=== PATIENT | male | born 1940 | race Caucasian/White ===

== ENCOUNTER → 2016-05-16 | Outpatient (CLI) | payer OTHER, BC, MEDICARE ==
[2016-05-16 17:05] LABS: CHLORIDE,CL 105 mmol/L (98-110); SODIUM,NA 140 mmol/L (136-146)
--- NOTE | 2016-05-17 10:39 | CR ---
EXAM DATE: 05/16/16 PATIENT'S AGE: 75 Patient: BERENICE LOCK Facility: [place], [place] Site . Site : 1940 Study: XRay Spine Cervical [id number]/1/2017 5:23:45 PM Ordering Physician: Malgorzata Smart Final Report: INDICATION: Neck pain. Technique: Three-view study cervical spine. Findings: C1-C2 articulation is unremarkable. No evidence of fracture or dislocation. Disc space narrowing and disc degeneration at C5-6 and C6-7 with anterior and posterior osteophytes. Impression: 1. Disk degeneration and disc space narrowing at C5-6 and C6-7. 2. No fracture or dislocation. Dictated by Alvaro Marques MD @ May 16 2016 5:36PM (Electronic Signature) Report Signed by Proxy and Original Signed Document filed in the Medical Record. SOURAV
--- NOTE | 2016-05-17 10:40 | CR ---
EXAM DATE: 05/16/16 PATIENT'S AGE: 75 Patient: BERENICE LOCK Facility: [place], [place] Site . Site : 1940 Study: XRay Spine Lumbar [id number]/1/2017 5:26:29 PM Ordering Physician: Malgorzata Smart Final Report: INDICATION: Pain TECHNIQUE: Lumbar spine 3 view. COMPARISON: None available FINDINGS: There is mild anterolisthesis of L4 on L5. The vertebral body heights are preserved. There is mild narrowing of the L5-S1 disc space. Small anterior osteophytes are seen at multiple levels. The facets are anatomically aligned. IMPRESSION: Mild degenerative changes. Dictated by Jhon Park MD @ 05/16/2016 5:36:06 PM Dictated by: Jhon Park MD @ 05/16/2016 17:36:15 (Electronic Signature) Report Signed by Proxy and Original Signed Document filed in the Medical Record. [email or web address]
== END ==
LOC: MW.CHIM 16:20
PROVIDERS: ATTEND Internal Medicine
DX: I25.10 Atherosclerotic heart disease of native coronary artery without angina pectoris (principal); M54.2 Cervicalgia; M54.5 Low back pain; M25.78 Osteophyte, vertebrae
CPT/HCPCS: 36415; 72040; 72040-26; 72100; 72100-26; 80053; 80061; 85025

== ENCOUNTER → 2016-07-17 | Outpatient (CLI) | payer BC, MEDICARE ==
--- NOTE | 2016-07-17 13:26 | CR ---
EXAMINATION: Left hip HISTORY: Sacroiliitis COMPARISON: None TECHNIQUE: 2 views FINDINGS/IMPRESSION: There is no acute osseous abnormality, dislocation, or fracture identified. Bon e mineralization and joint spaces appear grossly preserved.
== END ==
LOC: MW.CHIM 09:58
PROVIDERS: ATTEND Internal Medicine
DX: M46.1 Sacroiliitis, not elsewhere classified (principal)
CPT/HCPCS: 73502-26-LT; 73502-LT

== ENCOUNTER 2017-01-05 01:02 | Emergency (ER) | payer BC, MEDICARE ==
--- NOTE | 2017-01-05 01:25 | EDM.PDOC ---
ED HPI GENERAL MEDICAL PROBLEM - General Chief Complaint: Neck Problem Stated Complaint: NECK PAIN Time Seen by Provider: 01/05/17 01:24 Source of Information: Reports: Patient - History of Present Illness INITIAL COMMENTS - FREE TEXT/NARRATIVE: HISTORY AND PHYSICAL: History of present illness: [Patient presents with neck pain previously 10 out of 10 pain, he has clear muscle spasm associated, he has been drinking tonight his sister is brought him to the emergency room as he was crying in pain prior to arrival, he has drank 6- 7 beers along with a whiskey drink, he also has taken a muscle relaxant. Pain currently is tolerable and 4 out of 10 he denies any stingers, paresthesia arm numbness tingling. Currently in no distress no fever nausea vomiting chills sweats no chest pain shortness breath headache dizziness palpitation no bowel or urine symptoms He has been getting his care through chiropractor multiple adjustments and massage therapy, there is previous cervical spine from last May, he states that earlier this year he awoke with sleep from the pain he has had pain since without improvement ] Review of systems: As per history of present illness and below otherwise all systems reviewed and negative. Past medical history: As per history of present illness and as reviewed below otherwise noncontributory. Surgical history: As per history of present illness and as reviewed below otherwise noncontributory. Social history: No reported history of drug or alcohol abuse. Family history: As per history of present illness and as reviewed below otherwise noncontributory. Physical exam: HEENT: Atraumatic, normocephalic, pupils reactive, negative for conjunctival pallor or scleral icterus, mucous membranes moist, throat clear, neck supple, nontender, trachea midline. Lungs: Clear to auscultation, breath sounds equal bilaterally, chest nontender. Heart: S1S2, regular, negative for clicks, rubs, or JVD. Abdomen: Soft, nondistended, nontender. Negative for masses or hepatosplenomegaly. Negative for costovertebral tenderness. Pelvis: Stable nontender. Genitourinary: Deferred. Rectal: Deferred. Extremities: Atraumatic, negative for cords or calf pain. Neurovascular unremarkable. Neuro: Awake, alert, oriented. Cranial nerves II through XII unremarkable. Cerebellum unremarkable. Motor and sensory unremarkable throughout. Exam nonfocal. Diagnostics: [Cervical spine without contrast ] Therapeutics: [Patient took muscle relaxant at home Fioricet 1-2 tabs by mouth every 6 when necessary #20 no refill No drinking or driving or hazardous activity while on this medication Follow-up with primary care in 2 weeks sooner as needed ] Impression: Paraspinous muscle spasm Degenerative disc disease C5-7 ] Definitive disposition and diagnosis as appropriate pending reevaluation and review of above. Posterior Neck Pain Score (Numeric/FACES): 10 - Related Data Allergies Allergy/AdvReac Type Severity Reaction Status Date / Time No Known Allergies Allergy Verified 01/05/17 01:23 Home Meds: Home Meds . [No Known Home Meds] 01/05/17 [History] ED ROS GENERAL - Review of Systems Review Of Systems: ROS reveals no pertinent complaints other than HPI. ED EXAM, GENERAL - Physical Exam Exam: See Below Course - Vital Signs Last Recorded V/S: Last Vital Signs Temp 35.9 C 01/05/17 01:15 Pulse 63 01/05/17 01:15 Resp 20 01/05/17 01:15 BP 123/73 01/05/17 01:15 Pulse Ox 97 01/05/17 01:15 - Orders/Labs/Meds Orders: Active Orders 24 hr Category Date Time Status Cervical Spine wo Cont [CT] Stat Exams 01/05/17 01:24 Taken Departure - Departure Time of Disposition: 02:47 Disposition: Home, Self-Care 01 Condition: Good Clinical Impression: Degenerative disc disease, Muscle spasm - Discharge Information Referrals: PCP,None [Primary Care Provider] - Forms: ED Department Discharge Additional Instructions: medication as prescribed Return if symptoms persist or worsen Follow-up with primary care in 2 weeks sooner as needed No drinking driving or hazardous activity with medication The following information is given to patients seen in the emergency department who are being discharged to home. This information is to outline your options for follow-up care. We provide all patients seen in our emergency department with a follow-up referral. The need for follow-up, as well as the timing and circumstances, are variable depending upon the specifics of your emergency department visit. If you don't have a primary care physician on staff, we will provide you with a referral. We always advise you to contact your personal physician following an emergency department visit to inform them of the circumstance of the visit and for follow-up with them and/or the need for any referrals to a consulting specialist. The emergency department will also refer you to a specialist when appropriate. This referral assures that you have the opportunity for follow-up care with a specialist. All of these measure are taken in an effort to provide you with optimal care, which includes your follow-up. Under all circumstances we always encourage you to contact your private physician who remains a resource for coordinating your care. When calling for follow-up care, please make the office aware that this follow-up is from your recent emergency room visit. If for any reason you are refused follow-up, please contact the [facility] emergency department at and asked to speak to the emergency department charge nurse. - My Orders Last 24 Hours: My Active Orders 01/05/17 01:24 Cervical Spine wo Cont [CT] Stat - Assessment/Plan Last 24 Hours: My Active Orders 01/05/17 01:24 Cervical Spine wo Cont [CT] Stat
--- NOTE | 2017-01-06 19:03 | CT ---
EXAM DATE: 01/05/17 PATIENT'S AGE: 76 Patient: BERENICE LOCK Facility: [place], [place] Site . Site : 1940 Study: CT Spine Cervical [id number]/21/2017 2:01:41 AM Ordering Physician: Doctor Wick Final Report: INDICATION: Pain TECHNIQUE: CT cervical spine without contrast. COMPARISON: None FINDINGS: Vertebral alignment: Alignment is normal. Vertebrae: There are no fractures or suspicious bony lesions. Discs and facet joints: Disc space narrowing and degenerative changes C5 through C7. Extraspinal findings: Prevertebral soft tissues are normal. Bilateral apical pleural thickening. With adjacent parenchymal opacities. IMPRESSION: Disc space narrowing and degenerative changes C5-C7. Bilateral apical pleural thickening with adjacent nodular upper lobe airspace opacities. Dictated by Basilio Pizano MD @ 01/05/2017 2:41:12 AM Dictated by: Basilio Pizano MD @ 01/05/2017 02:41:39 (Electronic Signature) Report Signed by Proxy. [facility]OSPITALEdward
== END 2017-01-05 03:25 | disposition home or self-care (01) ==
LOC: MW.ED 01:02
DX: M50.323 Other cervical disc degeneration at C6-C7 level (principal); M62.838 Other muscle spasm
CPT/HCPCS: 72125; 72125-26; 99282; 99283-25

== ENCOUNTER 2017-08-15 14:19 | Emergency (ER) | payer MEDICARE, BC ==
--- NOTE | 2017-08-15 14:49 | EDM.PDOC ---
ED HPI GENERAL MEDICAL PROBLEM - General Chief Complaint: General Stated Complaint: SWELLING TO RIGHT LEG AND ABDOMEN Time Seen by Provider: 08/15/17 14:33 - History of Present Illness INITIAL COMMENTS - FREE TEXT/NARRATIVE: HISTORY AND PHYSICAL: History of present illness: The patient is a 77-year-old male who has no stated medical history and no provider and presents with a one-week history of a discomfort/pinching pain in his right groin area that comes and goes. He says he feels like it radiates around to his hip into his inguinal area but does not go down his leg. He has no testicular pain or swelling no urinary complaints no flank pain and no issues with bowel movements. He has no midline back pain or abdominal pain. He is eating and drinking normally. For work he does do a lot of activities lifting and moving different objects and he notices that when he is doing activities he feels the discomfort more. He says that today he noticed a lump area down there that comes and goes. He has no weakness or neurosensory changes in his legs Review of systems: As per history of present illness and below otherwise all systems reviewed and negative. Past medical history: As per history of present illness and as reviewed below otherwise noncontributory. Surgical history: As per history of present illness and as reviewed below otherwise noncontributory. Social history: No reported history of drug or alcohol abuse. Family history: As per history of present illness and as reviewed below otherwise noncontributory. Physical exam: General: Well-developed well-nourished man who is nontoxic and moves easily in the ED. HEENT: Atraumatic, normocephalic, negative for conjunctival pallor or scleral icterus, mucous membranes moist, throat clear, neck supple, nontender, trachea midline. Lungs: Clear to auscultation, breath sounds equal bilaterally, chest nontender. Heart: S1S2, regular in rhythm no overt murmurs Abdomen: Soft, nondistended, nontender. Negative for masses or hepatosplenomegaly. Negative for costovertebral tenderness. Normoactive bowel sounds Pelvis: Stable nontender. There is no lateral hip tenderness Genitourinary: The testicles are descended and there is no inguinal adenopathy redness. At the right groin area a direct inguinal hernia is appreciated and easily reducible and in fact slips in and out when I have the patient Valsalva and then relax. It is soft and mildly tender but reduces easily. Rectal: Deferred. Extremities: Atraumatic negative for cords or calf pain. Neurovascular unremarkable. Full range of motion of all extremities and there is no discrete tenderness at the right hip with internal or external rotation or flexion and extension. There is no leg asymmetry no pedal edema no calf swelling appreciated. Neuro: Awake, alert, oriented. Cranial nerves II through XII unremarkable. Cerebellum unremarkable. Motor and sensory unremarkable throughout. Exam nonfocal. Back: There are no midline step-offs tenderness or defects of the thoracic or lumbar spine no posterior pelvis tenderness Diagnostics: [] Therapeutics: [] Impression: Right inguinal hernia, direct, reducible stable Definitive disposition and diagnosis as appropriate pending reevaluation and review of above. - Related Data Allergies Allergy/AdvReac Type Severity Reaction Status Date / Time No Known Allergies Allergy Verified 08/15/17 14:33 Home Meds: Home Meds . [No Known Home Meds] 01/05/17 [History] Past Medical History HEENT History: Reports: Impaired Vision Other Cardiovascular History: heart attack - Infectious Disease History Infectious Disease History: Reports: Measles, Mumps, Rubella - Past Surgical History HEENT Surgical History: Reports: None Cardiovascular Surgical History: Reports: Coronary Artery Stent GI Surgical History: Reports: Appendectomy Social & Family History - Family History Family Medical History: Noncontributory - Tobacco Use Smoking Status *Q: Former Smoker Used Tobacco, but Quit: Yes Month/Year Tobacco Last Used: 03/1962 - Caffeine Use Caffeine Use: Reports: Coffee - Recreational Drug Use Recreational Drug Use: No ED ROS GENERAL - Review of Systems Review Of Systems: ROS reveals no pertinent complaints other than HPI. ED EXAM, GENERAL - Physical Exam Exam: See Below (See dictation) Course - Vital Signs Last Recorded V/S: Last Vital Signs Temp 36.9 C 08/15/17 14:30 Pulse 68 08/15/17 14:30 Resp 16 08/15/17 14:30 BP 150/92 H 08/15/17 14:30 Pulse Ox 97 08/15/17 14:30 Departure - Departure Time of Disposition: 14:47 Disposition: Home, Self-Care 01 Condition: Good Clinical Impression: Right inguinal hernia - Discharge Information Referrals: PCP,None [Primary Care Provider] - Additional Instructions: The following information is given to patients seen in the emergency department who are being discharged to home. This information is to outline your options for follow-up care. We provide all patients seen in our emergency department with a follow-up referral. The need for follow-up, as well as the timing and circumstances, are variable depending upon the specifics of your emergency department visit. If you don't have a primary care physician on staff, we will provide you with a referral. We always advise you to contact your personal physician following an emergency department visit to inform them of the circumstance of the visit and for follow-up with them and/or the need for any referrals to a consulting specialist. The emergency department will also refer you to a specialist when appropriate. This referral assures that you have the opportunity for followup care with a specialist. All of these measure are taken in an effort to provide you with optimal care, which includes your followup. Under all circumstances we always encourage you to contact your private physician who remains a resource for coordinating your care. When calling for followup care, please make the office aware that this follow-up is from your recent emergency room visit. If for any reason you are refused follow-up, please contact the [facility] emergency department at and ask to speak to the emergency department charge nurse. [facility]-General Surgery Professional Building [address] [place] [id number] [facility] Primary care- Internal Medicine and Family [facility] [address] [place] [id number] If the lump appears again with activities try to lay down and relax and massage the area until it reduces as we did in the ED. Try to reduce strenuous activity and lifting and do not force bowel movements. Please contact our providers in the clinic to discuss surgical repair of this if you choose. Return to ER as needed and as discussed.
== END 2017-08-15 15:24 | disposition home or self-care (01) ==
LOC: MW.ED 14:19
DX: K40.90 Unilateral inguinal hernia, without obstruction or gangrene, not specified as recurrent (principal); Z87.891 Personal history of nicotine dependence
CPT/HCPCS: 99282

== ENCOUNTER 2017-09-13 06:40 | Day surgery (SDC) | payer BC ==
[~2017-09-13 06:40] MED LIST: Lactated Ringers 1,000 ML IV SCH
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
[2017-09-13] MEDS ORDERED: fentaNYL 100 MCG/2 ML SDV ONE (07:21)
[2017-09-13] MEDS ORDERED: fentaNYL 250 MCG/5 ML SDV ONE (07:21)
[2017-09-13] MEDS ORDERED: Lidocaine 2% 5 ML SDV ONE (07:21)
[2017-09-13] MEDS ORDERED: Midazolam 1 MG/ML 2 ML SDV ONE (07:21)
[2017-09-13] MEDS ORDERED: Propofol 200 MG/20 ML SDV ONE (07:21)
[2017-09-13] MEDS ORDERED: ceFAZolin/Dextrose,Iso-Osmotic 2 GM/50 ML Duplex Bag IV ONE (07:30)
[2017-09-13] MEDS ORDERED: ceFAZolin 1 GM Vial ONE (07:39)
[2017-09-13] MEDS ORDERED: Bupivacaine 0.5% 10 ML SDV ONE (07:39)
[2017-09-13] MEDS ORDERED: ePHEDrine 50 MG/ML SDV ONE (08:05)
[2017-09-13] MEDS ORDERED: fentaNYL 100 MCG/2 ML SDV IVPUSH PRN (08:22)
[2017-09-13] MEDS ORDERED: Neostigmine Methylsulfate 1 MG/ML 5 ML Syringe ONE (08:43)
[2017-09-13] MEDS ORDERED: Glycopyrrolate 0.2 MG/ML SDV ONE (08:43)
[2017-09-13] MEDS ORDERED: Morphine 10 MG/ML Syringe IVPUSH PRN (09:07)
[2017-09-13] MEDS ORDERED: Ondansetron 4 MG/2 ML SDV IVPUSH PRN (09:07)
[2017-09-13] MEDS ORDERED: Acetaminophen/HYDROcodone 325-5 MG Tab PO PRN (09:07)
--- NOTE | 2017-09-13 09:13 | PCM.OPNOTE ---
- General Post-Op/Procedure Note Date of Surgery/Procedure: 09/13/17 Operative Procedure(s): Repair indirect right inguinal hernia with large Bard PerFix plug and patch Pre Op Diagnosis: Reducible right inguinal hernia Post-Op Diagnosis: Reducible indirect right inguinal hernia Anesthesia Technique: General ET Tube (ASA II) Primary Surgeon: Alessandro Siddiqui Fluid Replacement, Intraop: 1,000 EBL in mLs: 10 Condition: Good Free Text/Narrative:: DICTATION [id number] CPT CODE 17888
[2017-09-13] MEDS ORDERED: Lactated Ringers 1,000 ML IV SCH (09:15)
--- NOTE | 2017-09-16 07:38 | OR ---
SURGEON: Alessandro Siddiqui M.D. DATE OF PROCEDURE: 09/13/2017 OPERATION PERFORMED: Repair of right inguinal hernia with large Bard PerFix plug and patch. ANESTHESIA: General endotracheal. ASA CLASSIFICATION: II. PREOPERATIVE DIAGNOSIS: Reducible right inguinal hernia. POSTOPERATIVE DIAGNOSIS: Reducible indirect right inguinal hernia. ESTIMATED BLOOD LOSS: 10 mL. INTRAOPERATIVE FLUID REPLACEMENT: 1000 mL of crystalloid. DESCRIPTION OF PROCEDURE: The patient was taken to the operating room and placed on the operating table in the supine position. Time-out was called for appropriate identification of the patient and procedure. Thigh-high TEDs and sequential compression boots were placed. Following satisfactory attainment of general endotracheal anesthesia, the abdomen was prepped with DuraPrep solution. Sterile drapes were applied. The skin incision was marked out in the right inguinal crease and infiltrated with 10 mL of 0.5% Marcaine solution. The skin incision was made and dissection carried through the deep down through the subcutaneous tissues obtaining hemostasis with the use of electrocautery. The external oblique was opened in the direction of its fibers and retracted. The spermatic cord was identified and mobilized and encircled with a [place] drain. There was an indirect sac that was dissected away from the cord and was able to be reduced without entering the sac. The defect was palpated and a large Bard PerFix plug and patch was brought to the operating table. This was soaked in 1% Ancef solution. The plug was placed into the internal ring and secured with an 0 Ethibond suture. The patch was placed over the inguinal floor with the wings brought around the cord laterally. The patch was then secured medially and inferiorly to Israel's ligament transitioning to the inguinal ligament and superiorly to the transversalis fascia with multiple interrupted 0 Ethibond sutures. All sutures were placed under direct vision and held with hemostats until the final sutures had been placed. The wings were brought around the cord and again secured laterally with an 0 Ethibond suture. Care was taken to also incorporate both plug and patch with at least one suture. Once this was accomplished, all sutures except the lateral stitch were secured. The patient was given Valsalva maneuver to 50+ cm of water and the repair felt to be solid. The lateral stitch was then secured with care taken not to impinge the cord. The wound was inspected for hemostasis and small bleeding sites were electrocoagulated. The wound was irrigated with 1% Ancef solution. The cord was returned to its anatomic location. The external oblique fascia was closed with running 3-0 Polysorb. Wilson's fascia was reapproximated with running 3-0 Polysorb and the skin edges were reapproximated with subcuticular 4-0 Monocryl. The incision was then Steri-Stripped and dressed with a sterile Tegaderm pad. Sponge, needle, and instrument counts were all correct. The patient tolerated the procedure well. Following emergence from anesthesia and extubation, the patient was taken to recovery room in stable condition. DORINA MONROE /[id number]
== END 2017-09-13 11:45 | disposition home or self-care (01) ==
LOC: MW.SDS 06:40
PROVIDERS: ATTEND Surgery
DX: K40.90 Unilateral inguinal hernia, without obstruction or gangrene, not specified as recurrent (principal); M46.1 Sacroiliitis, not elsewhere classified; I25.10 Atherosclerotic heart disease of native coronary artery without angina pectoris; I25.2 Old myocardial infarction; F32.9 Major depressive disorder, single episode, unspecified; Z79.82 Long term (current) use of aspirin; Z87.891 Personal history of nicotine dependence
CPT/HCPCS: 49505; A9270; J0690; J2250; J3010; J7120; C1781; J2704

== ENCOUNTER 2018-08-25 02:10 | Emergency (ER) | payer MEDICARE, BC ==
[2018-08-25] MEDS ORDERED: Bacitracin Oint 1 GM U/D Packet TOP ONE (02:27)
[2018-08-25] MEDS ORDERED: Amoxicillin/Clavulanate K 875-125 MG Tab PO ONE (02:28)
[2018-08-25] MEDS ORDERED: Diphtheria/Tetanus Toxoids,Adult (Td) 0.5 ML Syringe IM ONE (02:29)
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
[2018-08-25] MEDS ORDERED: Sodium Chloride 0.9% 2.5 ML Syringe FLUSH PRN (04:13)
[2018-08-25] MEDS ORDERED: Sodium Chloride 0.9% 10 ML Syringe FLUSH PRN (04:13)
[2018-08-25] MEDS ORDERED: Sodium Chloride 0.9% 1,000 ML IV SCH (04:15)
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
[2018-08-25] MEDS ORDERED: Ondansetron 4 MG/2 ML SDV ONE (04:21)
[2018-08-25] MEDS ORDERED: Ondansetron 4 MG/2 ML SDV IVPUSH ONE (04:22)
[2018-08-25 05:01] LABS: CHLORIDE,CL 101 mmol/L (98-107); SODIUM,NA 139 mmol/L (136-148)
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
== END 2018-08-25 05:05 ==
LOC: MW.ED 02:10
DX: S02.40DA Maxillary fracture, left side, initial encounter for closed fracture (principal); S02.82XA Fracture of other specified skull and facial bones, left side, initial encounter for closed fracture; S61.251A Open bite of left index finger without damage to nail, initial encounter; G93.89 Other specified disorders of brain; Z23 Encounter for immunization; Z79.82 Long term (current) use of aspirin; Z79.899 Other long term (current) drug therapy; Y04.1XXA Assault by human bite, initial encounter
CPT/HCPCS: 36415; 70450; 70486; 73030; 80053; 85025; 85610; 90471; 90714; 96374; 99285; A9270; G0480; J2405; J7040

== ENCOUNTER 2022-01-30 14:44 | Emergency (ER) | payer MEDICARE, OTHER ==
[2022-01-30] MEDS ORDERED: Sodium Chloride 0.9% 10 ML Syringe FLUSH PRN (15:38)
[2022-01-30] MEDS ORDERED: Sodium Chloride 0.9% 2.5 ML Syringe FLUSH PRN (15:38)
[2022-01-30] MEDS ORDERED: Lactated Ringers 1,000 ML IV SCH (15:45)
[2022-01-30] MEDS ORDERED: Morphine 4 MG/ML Syringe IVPUSH ONE (15:52)
[2022-01-30] MEDS ORDERED: Ondansetron 4 MG/2 ML SDV IVPUSH ONE (15:52)
[2022-01-30 17:48] LABS: CARBON DIOXIDE,CO2 27.7 mmol/L (21.0-32.0); POTASSIUM,K 4.1 mmol/L (3.5-5.1)
[2022-01-30 17:55] LABS: CORONAVIRUS COVID-19 NAA NEGATIVE (NEGATIVE); INFLUENZA A NAA NEGATIVE (NEGATIVE); INFLUENZA B NAA NEGATIVE (NEGATIVE)
== END 2022-01-30 20:42 ==
LOC: MW.ED 14:44
DX: S72.142A Displaced intertrochanteric fracture of left femur, initial encounter for closed fracture (principal); Z20.822 Contact with and (suspected) exposure to COVID-19; Z79.82 Long term (current) use of aspirin; W01.0XXA Fall on same level from slipping, tripping and stumbling without subsequent striking against object, initial encounter
CPT/HCPCS: 0240U; 36415; 73502; 80053; 85025; 96374; 96375; 99285; J2270; J2405; J3490; J7120